=== PATIENT | female | born 1945 | race Caucasian/White ===

== ENCOUNTER 2017-06-09 13:00 | Outpatient (RCR) | payer MEDICARE, OTHER, SELFPAY ==
--- NOTE | 2017-03-31 09:55 | HP.PTEVAL_ITS ---
Patient's Visit Information MARITZA MCMILLAN is a 71 year old F referred to Physical Therapy by Khloe Pulido MD with a diagnosis of Bilateral Knee Pain. Date of Evaluation: 03/31/17 Physical Therapist: Eun Babcock - Visit Plan Frequency: 2x /Week Duration: 4 Weeks Plan: Focus on LE and core s/s and fuctional mobility - Subjective Subjective: Bilateral knee pain- increasing worse in the last year. Feels that they are both bad but they take turns being worse. Visited sister in [place] and she was pretty sore. 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 Has had injuries to both knees throughout years with wear and tear. Left knee repair 2000- torn meniscus and the repair would last 10 years. Hurt the right in 1959 rope tow blew the knee up- 2003 fell in a parking lot and ended up with knee pain. The right is normally worse than the left but not always. Pain comes and goes. Sleep: not disturbed. Worst: 3/10 Best: 0/10 Agg : sitting/standing for long periods of time (30 min to an hour), stairs (down is worse), getting in/out of the car, Eases:capsasin, asprin. Pain is located on the patellas and the posterior knee- possible radiating because she has sciatic pain on both sides. Sciatic pain both sides- came to see Shannon - has been having cortizone every 8 months in her back and muscle relaxers. Had been very active but her knees decrease her ability- last horse in July and does not plan to get another one. X-rays show no bone on bone. No MRI on the knees. Goals: reduce pain to be able to do more walking. PMHx: concussions (9), STM loss, repeated pneumonia, asthma, CPAP. Meds: promarin, proair, pantroprazole, provigil, niacin, folic acide - Objective Posture: FH, RS, Increased kyphosis. Gait: antalgic- decreased heel/toe strike. Stairs: asc/desc 8'' with 2 HR- slow with poor control. HR/TR: WNL. SLS: 15 sec without LOB then required UE A. Palpation: tender along medial and lateral joint line and posterior knee bilaterally. ROM: left: 5-100 degrees right: 20-100 degrees. Strength: ankle: 5/5, Knee: 4/5, Hip: 4-/5 throughout Core:fair minus. Flex: HS: severe, Gastroc: moderate - Goals Goal 1:: Patient will be I with HEP and progression Goal Time Frame: 4-6 Weeks Goal 2:: Patient will asc/desc 8 stairs recip with 1 HR and good control Goal Time Frame: 4-6 Weeks Goal 3:: Patient will ambulate>300 feet with a normalized gait pattern Goal Time Frame: 4-6 Weeks Goal 4:: Patient will report 0/10 pain for 1 week Goal Time Frame: 4-6 Weeks Goal 5:: Patient will demo 5/5 strength in LE where deficit to ease ADL's. Goal Time Frame: 4-6 Weeks - Rehabilitation Potential Physical Therapy Diagnosis: Patient presents with hypomobility- she has decreased ROM, strength, flex and muscular endurance leading to increased pain with ADL's. Rehabilitation Potential: Fair - Anticipated Interventions Patient/Client Instruction: Educate patient on: Benefits of Fitness Program For the Purpose of:: To increase tolerance to activity/condition/position Therapeutic Exercise to Include: Strength training, Balance training, Agility training, Body mechanics, Postural training, Flexibilty training, Gait and locomotor training, Passive ROM, Active ROM, Dynamic Lumbar Stabilization For the Purpose of:: To improve muscle performance and motor function TENS: Yes Cryotherapy (ice pack, ice massage): Yes Thermo therapy (hot pack): Yes Ultrasound (thermal/non thermal): Yes For the Purpose of:: To decrease pain Thank you for the opportunity to evaluate your patient. For Medicare and Medicare HMO plans, please review the plan of care and approve it. It will need to be FAXED BACK to us at [phone] for Medicare purposes. Please let me know if there are questions or concerns regarding this plan of care. Physician Signature: Date:
--- NOTE | 2017-04-28 13:50 | HP.PTREVAL_ITS ---
Khloe Pulido MD, It has been my pleasure to treat MARITZA MCMILLAN over the last 7 visits for Bilateral Knee Pain. Please see the progress note below for an update on the physical therapy plan of care! Subjective: Patient feels that she is better- can walk longer and is less painful. Still has problems getting up and down in a chair. Takes asprin 2x a day. Left vs Right depends on the day. Has not had injections in the knees. Has not seen an ortho yet. Feels that she is 40% better- wants to walk faster and longer distances. Objective/Function: Posture: good throughout. Gait: slightly antalgic- decreased stride length. HR/TR: WNL. Balance: SLS for 2 seconds each. ROM: WFL. Palpation: tender along medial and lateral joint line. Strength: Ankle: 5 /5, Knee: 4+/5, Hip: 4+/5 Plan Plan: Cont 2x a week for 4 weeks Goals Goal 1:: Patient will be I with HEP and progression Goal Time Frame: 4-6 Weeks Goal Progress: Progressing Goal 2:: Patient will asc/desc 8 stairs recip with 1 HR and good control Goal Time Frame: 4-6 Weeks Goal Progress: Progressing Goal 3:: Patient will ambulate>300 feet with a normalized gait pattern Goal Time Frame: 4-6 Weeks Goal Progress: Progressing Goal 4:: Patient will report 0/10 pain for 1 week Goal Time Frame: 4-6 Weeks Goal Progress: Progressing Goal 5:: Patient will demo 5/5 strength in LE where deficit to ease ADL's. Goal Time Frame: 4-6 Weeks Goal Progress: Progressing Anticipated Interventions Patient/Client Instruction: Educate patient on: Benefits of Fitness Program For the Purpose of:: To increase tolerance to activity/condition/position Therapeutic Exercise to Include: Strength training, Balance training, Agility training, Body mechanics, Postural training, Flexibilty training, Gait and locomotor training, Passive ROM, Active ROM, Dynamic Lumbar Stabilization For the Purpose of:: To improve muscle performance and motor function TENS: Yes Cryotherapy (ice pack, ice massage): Yes Thermo therapy (hot pack): Yes Ultrasound (thermal/non thermal): Yes For the Purpose of:: To decrease pain Please do not hesitate to contact me at [phone] by phone or Fax: if you have questions or concerns regarding this new plan of care! Sincerely, Eun Babcock
--- NOTE | 2017-06-09 13:53 | HP.PTDCSUM_ITS ---
[facility] - PT D/C Summary It has been my pleasure to treat MARITZA MCMILLAN under orders from Khloe Pulido MD, for the diagnosis of Bilateral Knee Pain for a total of 12 visit(s). Discharge Date: Please see the following information for a summary of their discharge status. - Subjective Subjective: Patient reports that moving is a lot better. After sitting for a long time she was sore after walking. Talked to Dr. Pulido who wants her to hold off on injections. - Pain Right Knee Pain Intensity (Out of 10): 2 Left Knee Pain Intensity (Out of 10): 2 - Objective Objective/Function: posture: good. Gait: no deviation noted. Stairs: asc/desc 8 recip with 1 HR- mildly poor control with descent. ROM: WFL. Strength: 5/ 5. HR/TR: WNL. Balance: 10 sec then UE A - Goals Goal 1:: Patient will be I with HEP and progression Goal Progress: Goal Met Goal 2:: Patient will asc/desc 8 stairs recip with 1 HR and good control Goal Progress: Progressing Goal 3:: Patient will ambulate>300 feet with a normalized gait pattern Goal Progress: Goal Met Goal 4:: Patient will report 0/10 pain for 1 week Goal Progress: Progressing Goal 5:: Patient will demo 5/5 strength in LE where deficit to ease ADL's. Goal Progress: Goal Met - Plan Plan: discharge - D/C Information If there are questions or concerns regarding this patient's physical therapy, please feel free to call me at [phone]. Thank you for the referral of this patient. Sincerely, Eun Babcock
== END 2017-06-09 19:00 | disposition home or self-care (01) ==
LOC: PT 13:00
PROVIDERS: Family Provider Family Medicine; PCP Family Medicine; Visit Provider Family Medicine
DX: M23.90 Unspecified internal derangement of unspecified knee (principal)
CPT/HCPCS: 97110; 97162; 97530; G8978; G8979

== ENCOUNTER 2018-05-24 14:30 | Outpatient (RCR) | payer MEDICARE, OTHER, SELFPAY ==
--- NOTE | 2018-03-08 10:57 | HP.PTEVAL_ITS ---
Patient's Visit Information MARITZA MCMILLAN is a 72 year old F referred to Physical Therapy by Khloe Pulido MD with a diagnosis of LEFT GLUTEUS STRAIN. Date of Evaluation: 03/08/18 Physical Therapist: Shannon Coffman - Visit Plan Frequency: 2x /Week Duration: 4-6 Weeks Plan: US TO LUMBOSACRAL REGION. POSTURE CORRECTION/STRENGTHENING, INSTRUCTION IN APPROPRIATE BODY MECHANICS AND ACTIVITY MODIFICATIONS. DLS WITH A NEUTRAL SPINE. SLY LE ROM, STRETCHING AND STRENGTHENING. HEP INSTRUCTION. CONSIDER AQUATIC THERAPY. 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 Disability: NO. Present symptoms: SLY LOW BACK PAIN AND TIGHTNESS THAT RADIATES DOWN BOTH BOTH LEGS TO FEET. LEFT > RIGHT. PATIENT DOES NOT REALLY THINK SHE IS HAVING NUMBNESS OR TINGLING BUT DISCRIBES AN ELECTRIC PAIN. Present since: CHRONIC LOW BACK CONDITION WITH FLARE UP IN APPROX NOVEMBER OF THIS YEAR WITH SITTING JOB. HAS ALSO HAD A HOUSE GUEST RECOVERING FROM SURGERY FOR A FEW MONTHS. Pain Scale: WORST 4/10, LEAST 0/10. Currently: 2/10. Commenced as a result of: NO APPARENT REASON OTHER THAN NEW JOB AND CHANGES RELATED TO HAVING HOUSE GUEST. Symptoms at onset: SLY LE'S. Worse: SITTING AT WORK, STANDING, DRIVING, CLIMBING STAIRS. Better: LYING DOWN ON BACK OR LEFT SDLY, TENS, SELF MASSAGE, PPT, FLEXERIL, IBUPROFEN. Disturbed sleep: NO. Previous history/Previous treatment: PT HERE AT [facility] 3[facility]/2015. STEROID INJECTIONS AT DR. PULIDO'S OFFICE (NOT DEBBI'S) WITH LAST INJECTION BEING JAN 2018. PATIENT REPORTS THE SHOTS USUALLY LAST ABOUT 6 MONTHS BUT THE LAST SHOT DIDN'T HELP MUCH AT ALL. NO DEBBI'S. NO BACK SURGERY. Coughing/sneezing/straining: NEGATIVE. Gait: PATIENT REPORTS HER RIGHT HEEL IS SCUFFING WHEN SHE WALKS NOW. SHE ALSO REPORTS SHE IS GUARDING HER BACK WITH WALKING. Difficulty initiating urinatin: NO. Accidents: NO. Unexplained weight loss: NO. Imaging: SEE MRI 2014. PMH: SLY KNEE OA, DEPRESSION. OTHER: PRIOR LEVEL OF FUNCTION: HAS GONE HORSE RIDING FOR ABOUT 6 YEARS. PRIOR TO THIS FLARE-UP PATIENT WAS ABLE TO WALK NORMAL AND WALK FURTHER. SHE WAS ALSO ABLE TO TOLERATE RIDING IN A CAR AND SITTING UNLIMITED PRIOR. SHE EVEN WAS ABLE TO TRAVEL BY PLANE. TOLERATING ALL OF THESE ACTIVITIES WELL WITH THE USE OF TENS, REST AND MEDICATION NEEDED. - Objective Sitting/Standing Posture: POOR. DECREASED LORDOSIS, FORWARD HEAD AND ROUNDED SHOULDERS. SCOLIOSIS. NO RELEVENT LATERAL SHIFT. Other Observations: THIS PATIENT AMBULATES INDEP'LY INTO PT WITHOUT ANY ASSISTIVE DEVICES OR LOB. SHE WALKS WITH INCREASED TRUNK FLEXION, DECREASED TRUNK ROTATION, DECREASED CADANCE AND DECREASED SLY STRIDE LENGTH. PATIENT IS ABLE TO TRANSFER INDEP'LY FROM SIT TO STAND AND REVERSE BUT TRANSFERS ARE SLOW AND GUARDED. Motor deficit: SLY LE HIP AND KNEE STRENGTH GROSSLY 4/5 WITH MMT'ING WITHIN AVAILABLE ROM. SLY ANKLE AND EHL 5/5. Sensory deficit: SLY LE LIGHT TOUCH SENSATION INTACT AND SYMMETR ICAL. ROM deficit: TIGHT SLY HIP FLEXORS AND HS'S. DECREASED SLY KNEE ROM: RIGHT KNEE - 10 DEG EXT TO 102 DEG FLEX. LEFT KNEE -12 DEG EXT TO 105 DEG FLEX. Reflexes: UNABLE TO ELICIT SLY LE DTR'S. Dural Signs: POSITIVE SLY LE'S. Lumbar mvmt loss: flex - MIN TO MOD. ext - BELLE. R SG - BELLE. L SG - BELLE. Core strength: POOR. Palpation: PATIENT IS TENDER WITH LIGHT PALPATION OF THE L3,4,5 AND SACRAL REGIONS. - Goals Goal 1:: DECREASE C/O LOW BACK AND SLY LE SX'S. Goal Time Frame: 4-6 Weeks Goal 2:: IMPROVE SITTING, STANDING, WALKING, DRIVING AND STAIR CLIMBING FUNCTION. Goal Time Frame: 4-6 Weeks Goal 3:: INSTRUCT IN PROPHYLAXIS Goal Time Frame: 4-6 Weeks - Rehabilitation Potential Rehabilitation Potential: Fair - Anticipated Interventions Patient/Client Instruction: Educate patient on: Condition, Plan of Care, Risk Factors, Benefits of Fitness Program For the Purpose of:: To improve self management Therapeutic Exercise to Include: Strength training, Body mechanics, Postural training, Flexibilty training, In an aquatic setting, Dynamic Lumbar Stabilization For the Purpose of:: To decrease pain, To increase ROM, To improve muscle performance and motor function, To increase tolerance to activity/condition/position, To improve ability of physical actions for home/community/work/leisure Ultrasound (thermal/non thermal): Yes For the Purpose of:: To decrease pain, To decrease swelling/inflammation, To inc rease ROM, To improve nutrient delivery to tissue Thank you for the opportunity to evaluate your patient. For Medicare and Medicare HMO plans, please review the plan of care and approve it. It will need to be FAXED BACK to us at [phone] for Medicare purposes. Please let me know if there are questions or concerns regarding this plan of care. Physician Signature: Date:
--- NOTE | 2018-04-19 17:02 | HP.PTREVAL ---
Khloe Pulido MD, It has been my pleasure to treat MARITZA MCMILLAN over the last 9 visits for LEFT GLUTEUS STRAIN. Please see the progress note below for an update on the physical therapy plan of care! Subjective: PATIENT REPORTS SHE IS WORKING ON GETTING AN APPOINTMENT FOR A CONSULT FOR DEBBI BUT IN THE MEAN TIME SHE IS GOING TO GET ANOTHER STEROID INJECTION FROM DR. PULIDO TOMORROW. PATIENT REPORTS SHE HAS TRIED TO COMPLY WITH PRIOR INSTRUCTIONS AND HAS HAD SOME GOOD DAYS SHOWING IMPROVEMENT BUT WOKE UP WITH PAIN DOWN RIGHT LEG TODAY AND KNEES HAVE NOT BEEN HELPFUL. PATIENT REPORTS SHE IS NO LONGER HAVING SPASMS IN HER LEGS AND THAT IS WHAT SCARED HER INITIALLY. SHE REPORTS SHE IS ALSO ABLE TO DRIVE WITH LESS SX'S. STEPS ARE SIGNIFICANTLY BETTER NOW TOO. Objective/Function: THIS PATIENT AMBULATES INDEP'LY INTO PT WITHOUT ANY ASSISTIVE DEVICES OR LOB. SHE STILL WALKS WITH INCREASED TRUNK FLEXION, DECREASED TRUNK ROTATION, DECREASED CADANCE AND DECREASED SLY STRIDE LENGTH WELL SLY KNEE FLEX. PATIENT IS ABLE TO TRANSFER INDEP'LY FROM SIT TO STAND AND REVERSE WITHOUT UE ASSIST BUT TRANSFERS ARE SLOW AND GUARDED. ROM deficit: TIGHT SLY HIP FLEXORS AND HS'S. DECREASED SLY KNEE ROM. Dural Signs: NEGATIVE SLY LE'S NOW. Lumbar mvmt loss: flex - MIN TO MOD. ext - MOD TO BELLE. R SG - MOD. L SG - BELLE. PATIENT DENIES INCREASED PAIN WITH LUMBAR ROM TESTING ALL PLANES IN BACK. Core strength: POOR. Palpation: PATIENT IS TENDER WITH LIGHT PALPATION OF THE SLY PARASPINAL, SACRAL AND BUTTOCK REGIONS. Plan Plan: DISCUSS TENS. CONT PER ORIG POC WORKING TOWARD SAME GOALS WITH THE HOPE THAT INJECTIONS ALONG WITH STANDING DESK AT WORK WILL HELP PATIENT TOLERATED PROGRESSION OF CORE STRENGTHENING. PATIENT IS AGREEABLE. Goals Goal 1:: DECREASE C/O LOW BACK AND SLY LE SX'S. Goal Time Frame: 4-6 Weeks Goal Progress: Progressing Goal 2:: IMPROVE SITTING, STANDING, WALKING, DRIVING AND STAIR CLIMBING FUNCTION. Goal Time Frame: 4-6 Weeks Goal Progress: Progressing Goal 3:: INSTRUCT IN PROPHYLAXIS Goal Time Frame: 4-6 Weeks Goal Progress: Progressing Anticipated Interventions Patient/Client Instruction: Educate patient on: Condition, Plan of Care, Risk Factors, Benefits of Fitness Program For the Purpose of:: To improve self management Therapeutic Exercise to Include: Strength training, Body mechanics, Postural training, Flexibilty training, In an aquatic setting, Dynamic Lumbar Stabilization For the Purpose of:: To decrease pain, To increase ROM, To improve muscle performance and motor function, To increase tolerance to activity/condition/position, To improve ability of physical actions for home/community/work/leisure Ultrasound (thermal/non thermal): Yes For the Purpose of:: To decrease pain, To decrease swelling/inflammation, To increase ROM, To improve nutrient delivery to tissue Please do not hesitate to contact me at [phone] by phone or if you have questions or concerns regarding this new plan of care! Sincerely, Shannon Coffman
--- NOTE | 2018-07-07 16:08 | HP.PT.NRP ---
[facility] - Discharge Summary (1) - Patient Information MARITZA MCMILLAN was seen in my office for initial evaluation on 03/08/18. The following Plan of Care was established for this patient: Initial Frequency: 2x /Week Initial Duration: 4-6 Weeks - Anticipated Interventions Patient/Client Instruction: Educate patient on: Condition, Plan of Care, Risk Factors, Benefits of Fitness Program For the Purpose of:: To improve self management Therapeutic Exercise to Include: Strength training, Body mechanics, Postural training, Flexibilty training, In an aquatic setting, Dynamic Lumbar Stabilization For the Purpose of:: To decrease pain, To increase ROM, To improve muscle performance and motor function, To increase tolerance to activity/condition/position, To improve ability of physical actions for home/community/work/leisure Ultrasound (thermal/non thermal): Yes For the Purpose of:: To decrease pain, To decrease swelling/inflammation, To increase ROM, To improve nutrient delivery to tissue This patient was last seen in our office 05/24/18. Pertinent comments regarding their Physical therapy will appear below: This patient has not returned to Physical Therapy and is appropriate to return to MD for further follow-up as needed. At this point I will be discontinuing this patient from physical therapy. I would be happy to see this patient again in the future if found appropriate by the physician. Thank you! Shannon Coffman, PT, Cert MDT
== END 2018-05-24 19:00 | disposition home or self-care (01) ==
LOC: PT 14:30
PROVIDERS: Family Provider Family Medicine; PCP Family Medicine; Referring Provider Family Medicine; Visit Provider Family Medicine
DX: S76.312D Strain of muscle, fascia and tendon of the posterior muscle group at thigh level, left thigh, subsequent encounter (principal)
CPT/HCPCS: 97035; 97110; 97113; 97162; 97530

== ENCOUNTER → 2020-07-22 13:30 | Outpatient (CLI) | payer MEDICARE, OTHER, SELFPAY ==
[2016-07-09 12:53] VITALS: BMI 33.1
--- NOTE | 2020-07-22 13:41 | RAD_ITS ---
STUDY: X-RAY - RIGHT KNEE REASON FOR EXAM: Female, 74 years old. PAIN TECHNIQUE: 4 view(s) of the knee. COMPARISON: None. FINDINGS: Normal visualized distal femur. Normal visualized proximal tibia and fibula. Normal proximal tibiofibular articulation. Normal medial femorotibial compartment. There is severe degenerative arthrosis of the lateral femorotibial compartment with severe joint space narrowing. There is moderate degenerative arthrosis of the patellofemoral articulation. The soft tissue structures are unremarkable. RAD/Knee 4 or More Views IMPRESSION: Degenerative arthrosis. Electronically Signed: Rajinder Simmons MD at 12:03 EST , Service support ,
== END ==
PROVIDERS: PCP Family Medicine; Referring Provider Nurse Practitioner Family; Visit Provider Nurse Practitioner Family
DX: M25.561 Pain in right knee (principal)
CPT/HCPCS: 73564

== ENCOUNTER → 2020-10-14 12:43 | Outpatient (CLI) | payer MEDICARE, OTHER, SELFPAY ==
--- NOTE | 2020-10-14 12:57 | RAD_ITS ---
STUDY: BARIUM ENEMA. REASON FOR EXAM: Female, 75 years old. REDUNDANT COLON/INCOMPLETE COLON FLUOROSCOPY TIME (if supplied): ( 78 seconds ) minutes/seconds. 13 images were obtained. TECHNIQUE: A ophthalmic pathologist film was obtained. Following this, contrast was introduced retrograde through the rectum. The entire colon was opacified. COMPARISON: None. FINDINGS: On the ophthalmic pathologist film, the gas pattern is unremarkable. Calcified gallstones. There is evidence of a dextroconvex scoliosis with multilevel disc space narrowing and spondylosis. There is redundancy of the sigmoid colon. Scattered sigmoid diverticula are seen with no radiographic evidence of diverticulitis. Diverticula are also seen in the left hemicolon. No evidence of antegrade or retrograde obstruction to the flow of contrast. RAD/Barium Enema No Air Cont IMPRESSION: Sigmoid diverticula with no radiographic evidence of diverticulitis. Gallstones. Electronically Signed: Simone Chavarria MD at 14:47 EDT , Service support ,
== END ==
PROVIDERS: PCP Family Medicine; Referring Provider Internal Medicine Gastroenterology; Visit Provider Internal Medicine Gastroenterology
DX: Q43.8 Other specified congenital malformations of intestine (principal); R15.0 Incomplete defecation
CPT/HCPCS: 74270

== ENCOUNTER → 2021-02-03 14:21 | Outpatient (CLI) | payer MEDICARE, OTHER, SELFPAY ==
[2021-02-03 18:32] LABS: AST(SGOT) 55 U/L (15-37); Alanine Aminotransfer ALT/SGPT 49 U/L (13-56); Albumin, Serum 3.6 g/dL (3.2-5.0); Alkaline Phosphatase 100 U/L (45-117); Anion Gap 7 (5-15); BUN 15 mg/dL (7-18); BUN/Creat Ratio 21.2 RATIO (10-20); Bilirubin, Direct 0.08 mg/dL (0.00-0.30); Calcium,Total 9.4 mg/dL (8.5-10.1); Chloride 103 mmol/L (98-107); Cholesterol 198 mg/dL (200); Creatinine, Serum 0.71 mg/dL (0.55-1.02); EST Glomerular Filtration Rate 86 mL/min (>60); Est Glom Filt Rate - Afr Amer 104 mL/min (>60); Globulin 4.4 g/dL (2.2-4.2); Glucose 160 mg/dL (74-106); High Density Lipoprotein 47 mg/dL; Potassium 4.3 mmol/L (3.5-5.1); Sodium Level 135 mmol/L (136-145); Thyroid Stim Hormone (TSH) 2.39 uIU/mL (0.358-3.74); Triglycerides 225 mg/dL; Very Low Density Lipoprotein 45 mg/dL (5-40)
== END ==
PROVIDERS: PCP Family Medicine; Referring Provider Family Medicine; Visit Provider Family Medicine
DX: E11.9 Type 2 diabetes mellitus without complications (principal)
CPT/HCPCS: 36415; 80048; 80061; 80076; 84443

== ENCOUNTER 2021-08-11 15:23 | Outpatient (CLI) | payer MEDICARE, OTHER, SELFPAY ==
--- NOTE | 2021-08-11 15:27 | RAD_ITS ---
STUDY: X-RAY - RIGHT ELBOW REASON FOR EXAM: Female, 75 years old. ELBOW PAIN TECHNIQUE: 3 view(s) of the elbow. COMPARISON: None. FINDINGS: Normal visualized humerus, radius and ulna. Normal radiocapitellar and ulnotrochlear articulations. Minimal enthesis, or presumed tendon insertion ossification, along medial humeral condyle. The soft tissue structures are unremarkable. RAD/Elbow min 3 Views IMPRESSION: Minimal chronic changes. No evidence of joint effusion or other acute findings. Electronically Signed: Beatrice Valenzuela MD at 1:00 EDT ,
== END 2021-08-11 23:59 | disposition home or self-care (01) ==
LOC: MTRAD 15:25
PROVIDERS: PCP Family Medicine; Referring Provider Family Medicine; Visit Provider Family Medicine
DX: M25.521 Pain in right elbow (principal)
CPT/HCPCS: 73080

== ENCOUNTER → 2021-10-05 | Outpatient (CLI) | payer MEDICARE, OTHER, SELFPAY ==
[2021-10-05 17:47] LABS: Absolute Lymphocyte Count 2.33 X10^3/uL (0.83-4.51); Absolute Neutrophil Count 2.9 X10^3/uL (2.0-7.7); Basophil# 0.02 X10^3/uL; Basophil% 0.3 % (0-1); Eosinophil# 0.23 X10^3/uL; Eosinophils% 3.8 % (0-5); Hematocrit 36.9 % (37-47); Hemoglobin 11.7 g/dL (12.0-15.0); Lymphocyte # 2.33 X10^3/ul (0.83-4.51); Lymphocyte % 38.1 % (19-41); Mean Corp Hgb Conc 31.7 g/dL (32-36); Mean Corpuscular Hgb 30.6 pg (27.0-32.0); Mean Corpuscular Volume 96.6 fL (81-99); Mean Platelet Vol. 10.5 fl (6.2-12.0); Monocyte# 0.66 X10^3/uL; Monocyte% 10.8 % (0-10); NRBC Flagged by Analyzer 0 % (0-5); Neutrophil # 2.85 X10^3/uL (2.7-7.7); Neutrophil % 46.5 % (47-70); Platelet Count 241 K/mm3 (150-450); RBC Distribution Width CV 14.1 % (11.6-14.6); RBC Distribution Width SD 49.3 fl (35.1-43.9); Red Blood Count 3.82 M/mm3 (4.2-5.4); White Blood Count 6.1 K/mm3 (4.4-11.0)
== END | disposition home or self-care (01) ==
LOC: MFPLAB 15:35
PROVIDERS: PCP Family Medicine; Visit Provider Family Medicine
DX: R04.0 Epistaxis (principal)
CPT/HCPCS: 36415; 85025

== ENCOUNTER → 2021-11-06 | Outpatient (CLI) | payer MEDICARE, OTHER, SELFPAY ==
[2021-11-06 15:43] LABS: AST(SGOT) 45 U/L (15-37); Alanine Aminotransfer ALT/SGPT 46 U/L (13-56); Albumin, Serum 3.7 g/dL (3.2-5.0); Alkaline Phosphatase 94 U/L (45-117); Anion Gap 8 (5-15); BUN 20 mg/dL (7-18); BUN/Creat Ratio 23.1 RATIO (10-20); Bilirubin, Direct 0.09 mg/dL (0.00-0.30); Calcium,Total 9.6 mg/dL (8.5-10.1); Chloride 106 mmol/L (98-107); Cholesterol 232 mg/dL (200); Creatinine, Serum 0.87 mg/dL (0.55-1.02); EST Glomerular Filtration Rate 68 mL/min (>60); Est Glom Filt Rate - Afr Amer 82 mL/min (>60); Globulin 4.1 g/dL (2.2-4.2); Glucose 153 mg/dL (74-106); High Density Lipoprotein 49 mg/dL; Potassium 4.3 mmol/L (3.5-5.1); Protein, Total 7.8 g/dL (6.4-8.2); Sodium Level 138 mmol/L (136-145); Triglycerides 254 mg/dL; Very Low Density Lipoprotein 51 mg/dL (5-40)
== END | disposition home or self-care (01) ==
LOC: MFPLAB 14:03
PROVIDERS: PCP Family Medicine; Referring Provider Family Medicine; Visit Provider Family Medicine
DX: E11.9 Type 2 diabetes mellitus without complications (principal)
CPT/HCPCS: 36415; 80048; 80061; 80076

== ENCOUNTER → 2022-01-12 | Outpatient (CLI) | payer MEDICARE, OTHER, SELFPAY ==
[2022-01-12 15:32] LABS: Absolute Lymphocyte Count 3.18 X10^3/uL (0.83-4.51); Absolute Neutrophil Count 4.1 X10^3/uL (2.0-7.7); Basophil# 0.06 X10^3/uL; Basophil% 0.7 % (0-1); Eosinophils% 3.5 % (0-5); Hematocrit 38.5 % (37-47); Hemoglobin 12.6 g/dL (12.0-15.0); Lymphocyte # 3.18 X10^3/ul (0.83-4.51); Mean Corp Hgb Conc 32.7 g/dL (32-36); Mean Corpuscular Hgb 28.8 pg (27.0-32.0); Mean Corpuscular Volume 88.1 fL (81-99); Monocyte# 0.94 X10^3/uL; Monocyte% 10.9 % (0-10); NRBC Flagged by Analyzer 0 % (0-5); Neutrophil # 4.08 X10^3/uL (2.7-7.7); Neutrophil % 47.6 % (47-70); Platelet Count 208 K/mm3 (150-450); RBC Distribution Width CV 13.5 % (11.6-14.6); RBC Distribution Width SD 44.2 fl (35.1-43.9); Red Blood Count 4.37 M/mm3 (4.2-5.4); White Blood Count 8.6 K/mm3 (4.4-11.0)
[2022-01-12 15:51] LABS: AST(SGOT) 49 U/L (15-37); Alanine Aminotransfer ALT/SGPT 41 U/L (13-56); Cholesterol 143 mg/dL (200); High Density Lipoprotein 47 mg/dL; Iron 72 ug/dL (50-170); Triglycerides 163 mg/dL; Very Low Density Lipoprotein 33 mg/dL (5-40)
== END | disposition home or self-care (01) ==
LOC: MTLAB 13:07
PROVIDERS: PCP Family Medicine; Referring Provider Family Medicine; Visit Provider Family Medicine
DX: E78.5 Hyperlipidemia, unspecified (principal); D64.9 Anemia, unspecified
CPT/HCPCS: 36415; 80061; 83540; 84450; 84460; 85025

== ENCOUNTER 2022-02-24 11:30 | Outpatient (RCR) | payer MEDICARE, OTHER, SELFPAY ==
--- NOTE | 2021-08-31 14:16 | [facility].PTEVAL_ITS ---
Patient's Visit Information MARITZA MCMILLAN is a 75 year old F referred to Physical Therapy by DIANE Todd with a diagnosis of DEGENERATION OF LUMBOSACRAL DISC. Date of Evaluation: 08/31/21 Physical Therapist: Shannon Coffman PT, Cert MDT - Visit Plan Frequency: 2-3x /Week Duration: 4-6 Weeks Plan: AQUATIC THERAPY FOR PAIN RELIEF, POSTURE CORRECTION/STRENGTHENING, INSTRUCTION IN APPROPRIATE BODY MECHANICS AND ACTIVITY MODIFICATIONS. DLS STARTING WITH A NEUTRAL SPINE PROGRESSING ROM TOLERATED. SLY LE ROM, STRETCHING AND STRENGTHENING. HEP INSTRUCTION. 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 Work/Leisure: [employer]. Present symptoms: LOW BACK PAIN - TOP OF HIPS. Present since: CHRONIC. Pain Scale: WORST 4/10, LEAST 0/10. Currently: 1-2/10. Commenced as a result of: NO APPARENT REASON OTHER THAN ARTHRITIS. Worse: STANDING AND WALKING, LIFTING GROCERIES, LIFTING GALLON OF MILK. Better: LYING DOWN FLAT, MUSCLE RELAXERS, TYLONOL. Disturbed sleep: NO. Previous history/Previous treatment: NO BACK SURGERY. 3 SETS OF INJECTIONS WITH LAST BEING 07/10/21 - HELPFUL. 08/19/21 N. BLOCK - HELPFUL - REDUCED PAIN BY ABOUT 75%. Coughing/sneezing/straining: NEGATIVE. Gait: LIMITED BY BACK PAIN. BEFORE N. BLOCK COULD NOT WALK MORE THAN ABOUT 250 TO 300 FEET. Difficulty initiating urination: NO. DENIES URINARY AND BOWEL INCONTINENCE. Unexplained weight loss: NO. Imaging: NONE RECENT. PMH/Recent major surgery: NOVEMBER 2020 RTK FOLLOWED BY 2 BLOOD CLOTS. NIDDM. ASTHMA. - Objective Sitting/Standing Posture: POOR. FH. RS'S. INCREASED KYPHOSIS. RIGHT ILIAC CREST HIGHER THAN RIGHT. WEARS L SHOE LIFT SOMETIMES. Lordosis: REDUCED. Other Observations: THIS PATIENT AMBULATES INDEP'LY INTO PT WITHOUT ANY ASSISTIVE DEVICES, DECREASED CADANCE, SLY KNEE FLEXION AND INCREASED TRUNK FLEXION. NO LOB. DECREASED SLY STRIDE LENGTH. MILD LIMP ON RIGHT LE. Sensory d eficit: SLY LE LIGHT TOUCH SENSATION IS GROSSLY INTACT AND SYMMETRICAL EXCEPT SOME RIGHT KNEE NUMBNESS THAT APPEARS TO BE RELATED TO TKR. ROM deficit: TIGHT SLY HIP FLEXORS, HS'S AND GASTROC SOLEUX COMPLEX'S. Motor deficit: RIGHT LE: HIP 4-/5, KNEE 4/5, ANKLE 5/5. RIGHT HIP 4/5, KNEE 4/5, ANKLE 5/5. Dural Signs: NEG SLY LE'S. Lumbar mvmt loss: flex - MOD. ext - BELLE. R SG - BELLE. L SG - BELLE. Core strength: POOR. Palpation: NO ACUTE L/S TENDERNESS. - Balance/Special Test Scores Oswestry Low Back Score: 19 - Goals Goal 1:: DECREASE C/O LOW BACK PAIN Goal Time Frame: 4-6 Weeks Goal 2:: IMPROVE LIFTING, WALKING, SITTING, STANDING, SOCIAL LIFE, TRAVEL AND HOMEMAKING FUNCTION Goal Time Frame: 4-6 Weeks Goal 3:: INSTRUCT IN PROPHYLAXIS Goal Time Frame: 4-6 Weeks - Anticipated Interventions Patient/Client Instruction: Educate patient on: Condition, Plan of Care, Risk Factors For the Purpose of:: To improve self management Therapeutic Exercise to Include: Strength training, Body mechanics, Postural training, Flexibilty training, Gait and locomotor training, Neuromotor development, In an aquatic setting, Dynamic Lumbar Stabilization For the Purpose of:: To decrease pain, To increase ROM, To improve muscle performance and motor function, To increase tolerance to activity/condition/position, To improve ability of physical actions for home/community/work/leisure, To improve gait and locomotor functions Thank you for the opportunity to evaluate your patient. For Medicare and Medicare HMO plans, please review the plan of care and approve it. It will need to be FAXED BACK to us at [phone] for Medicare purposes. For Medicare only, by signing this I certify the plan of care. Please let me know if there are questions or concerns regarding this plan of care. Physician Signature: Date:
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
--- NOTE | 2021-12-18 12:18 | HP.PTREVAL ---
Eleni Srivastava, MONY-C, It has been my pleasure to treat MARITZA MCMILLAN over the last 17 visits for DEGENERATION OF LUMBOSACRAL DISC. Please see the progress note below for an update on the physical therapy plan of care! Subjective: PATIENT REPORTS HER WALKING PACE IS IMPROVING BUT STILL HAS POOR ENDURANCE - NEEDING TO REST AFTER ABOUT 20 MIN OF ACTIVITIES. STATES SHE CAN DO THE POOL EX'S BETTER SINCE RE-STARTING AND FEELS SHE CAN ACTIVATE MUSCLES INDIVIDUALLY NOW THAT SHE COULDN'T BEFORE. ABLE TO TRANSFER OFF THE COUCH INDEP'LY CONSISTANTLY NOW. I THINK YOUR POOL THERAPISTS DO A GREAT JOB. REPORTS HER DIABETES IS UNDER CONTROL NOW. Objective/Function: PATIENT WAS SEEN TODAY FOR RE-ASSESSMENT OF PROGRESS TOWARD THE SET PT GOALS AND THE NEED FOR FURTHER PHYSICAL THERAPY VS READINESS FOR DISCHARGE. PATIENT IS TOLERATING AQUATIC THERAPY WELL AND A GOOD CANDIDATE TO CONTINUE. PATIENT IS AGREEABLE. UPON EXAM TODAY: THIS PATIENT AMBULATES INDEP'LY INTO PT WITHOUT ANY ASSISTIVE DEVICES, DECREASED CADANCE, SLY KNEE FLEXION AND INCREASED TRUNK FLEXION. NO LOB. DECREASED SLY STRIDE LENGTH. MILD LIMP ON RIGHT LE. ROM deficit: TIGHT SLY HIP FLEXORS, HS'S AND GASTROC SOLEUS COMPLEX'S. Motor deficit: RIGHT LE: HIP 4/5, KNEE 4/5, ANKLE 5/5. LEFT HIP 4/5, KNEE 4/5, ANKLE 5/5. Dural Signs: NEG SLY LE'S. Lumbar mvmt loss: flex - MIN TO MOD. ext - BELLE. R SG - MOD. L SG - MOD. PATIENT DENIES INCREASED PAIN WITH LUMBAR ROM TESTING TODAY INTO FLEXION BUT LSG PROVOKES PAIN. Core strength: POOR TO FAIR. Palpation: NO ACUTE L/S TENDERNESS. OTHER: PATIENT REPORTS INTERMITTENT LEFT ABDOMINAL AREA CRAMPING WITH TASKS LIKE PUTTING SHOES ON - INSTRUCTED IN DIAPHRAGMATIC BREATHING WITH GOOD RESPONSE. Plan Plan: CONTINUE AQUATIC THERAPY FOR PAIN RELIEF, POSTURE CORRECTION/STRENGTHENING, INSTRUCTION IN APPROPRIATE BODY MECHANICS AND ACTIVITY MODIFICATIONS. DLS STARTING WITH A NEUTRAL SPINE PROGRESSING ROM TOLERATED. SLY LE ROM, STRETCHING AND STRENGTHENING. HEP INSTRUCTION. Balance/Gait/Functional tests - Balance/Special Test Scores Oswestry Low Back Score: 21 TUG Test Time Seconds: 9.54 Tug Test: <20 sec.=mostly independent 30 Second Chair Rise Test Seconds: 10 Goals Goal 1:: DECREASE C/O LOW BACK PAIN Goal Time Frame: 4-6 Weeks Goal Progress: Progressing Goal 2:: IMPROVE LIFTING, WALKING, SITTING, STANDING, SOCIAL LIFE, TRAVEL AND HOMEMAKING FUNCTION Goal Time Frame: 4-6 Weeks Goal Progress: Progressing Goal 3:: INSTRUCT IN PROPHYLAXIS Goal Time Frame: 4-6 Weeks Goal Progress: Progressing Anticipated Interventions Patient/Client Instruction: Educate patient on: Condition, Plan of Care, Risk Factors For the Purpose of:: To improve self management Therapeutic Exercise to Include: Strength training, Body mechanics, Postural training, Flexibilty training, Gait and locomotor training, Neuromotor development, In an aquatic setting, Dynamic Lumbar Stabilization For the Purpose of:: To decrease pain, To increase ROM, To improve muscle performance and motor function, To increase tolerance to activity/condition/position, To improve ability of physical actions for home/community/work/leisure, To improve gait and locomotor functions Please do not hesitate to contact me at [phone] by phone or if you have questions or concerns regarding this new plan of care! Sincerely, Shannon Coffman, PT, Cert MDT
--- NOTE | 2022-01-22 13:08 | HP.PTREVAL ---
Eleni Srivastava, MONY-C, It has been my pleasure to treat MARITZA MCMILLAN over the last 27 visits for DEGENERATION OF LUMBOSACRAL DISC. Please see the progress note below for an update on the physical therapy plan of care! Subjective: I'M STRONGER AND MY ENDURANCE IS BETTER. ABLE TO DO EXTRA 20 MINUTES OF POOL EX AFTER LAST SESSION AND STILL ABLE TO WALK TO THE CAR AND RUN ERRANDS AFTER WITHOUT FEELING BEAT UP CAN LIFT A JUG OF WATER WITHOUT BEING IN PAIN. CAN MAKE SOME MEALS AND DO THE DISHES. EVEN DOING SOME FREEZING. PATIENT REPORTS HER LEFT SIDE CRAMPING IS INTERMITTENT NOW AND IT GOES AWAY WITH DIAPHRAGMATIC BREATHING. Objective/Function: PATIENT WAS SEEN TODAY FOR RE-ASSESSMENT OF PROGRESS TOWARD THE SET PT GOALS AND THE NEED FOR FURTHER PHYSICAL THERAPY VS READINESS FOR DISCHARGE. PATIENT IS TOLERATING AQUATIC THERAPY WELL AND A GOOD CANDIDATE TO CONTINUE DECREASING TO 1X/WK WHILE SHE ATTEMPS TO TRANSITION TO INDEP PROGRAM. PATIENT IS AGREEABLE. UPON EXAM TODAY: THIS PATIENT AMBULATES INDEP'LY INTO PT WITHOUT ANY ASSISTIVE DEVICES, GOOD CADANCE, MILD SLY KNEE FLEXION AND INCREASED TRUNK FLEXION. NO LOB. ROM deficit: TIGHT SLY HIP FLEXORS, HS'S AND GASTROC SOLEUS COMPLEX'S. TIGHT HIP ROTATORS. Motor deficit: RIGHT LE: HIP 4/5, KNEE 4/5, ANKLE 5/5. LEFT HIP 4/5, KNEE 4/5, ANKLE 5/5. Dural Signs: NEG SLY LE'S. Lumbar mvmt loss: flex - MIN - MOD. ext - BELLE. R SG - MOD. L SG - MOD. PATIENT REPORTS MILD INCREASED LBP TODAY WITH LUMBAR ROM TESTING ALL PLANES. Core strength: POOR TO FAIR. _ INSTRUCTED IN AND ADDED SUPINE HIP ADDUCTOR STRETCHING TO HEP X 20 SEC X 3, 2 TIMES A DAY. Plan Plan: CONTINUE AQUATIC THERAPY 1X/WK X 4-5 WKS FOR PAIN RELIEF, POSTURE CORRECTION/STRENGTHENING, INSTRUCTION IN APPROPRIATE BODY MECHANICS AND ACTIVITY MODIFICATIONS. DLS STARTING WITH A NEUTRAL SPINE PROGRESSING ROM TOLERATED. SLY LE ROM, STRETCHING AND STRENGTHENING. HEP INSTRUCTION. Balance/Gait/Functional tests - Balance/Special Test Scores Oswestry Low Back Score: 21 TUG Test Time Seconds: 9.22 Tug Test: <10 sec.=free mobile 30 Second Chair Rise Test Seconds: 11 Goals Goal 1:: DECREASE C/O LOW BACK PAIN Goal Time Frame: 4-6 Weeks Goal Progress: Progressing Goal 2:: IMPROVE LIFTING, WALKING, SITTING, STANDING, SOCIAL LIFE, TRAVEL AND HOMEMAKING FUNCTION Goal Time Frame: 4-6 Weeks Goal Progress: Progressing Goal 3:: INSTRUCT IN PROPHYLAXIS Goal Time Frame: 4-6 Weeks Goal Progress: Progressing Anticipated Interventions Patient/Client Instruction: Educate patient on: Condition, Plan of Care, Risk Factors For the Purpose of:: To improve self management Therapeutic Exercise to Include: Strength training, Body mechanics, Postural training, Flexibilty training, Gait and locomotor training, Neuromotor development, In an aquatic setting, Dynamic Lumbar Stabilization For the Purpose of:: To decrease pain, To increase ROM, To improve muscle performance and motor function, To increase tolerance to activity/condition/position, To improve ability of physical actions for home/community/work/leisure, To improve gait and locomotor functions Please do not hesitate to contact me at [phone] by phone or if you have questions or concerns regarding this new plan of care! Sincerely, Shannon Coffman, PT, Cert MDT
--- NOTE | 2022-02-24 13:11 | HP.PTDCSUM ---
It has been my pleasure to treat MARITZA MCMILLAN referred by DIANE Todd, with the diagnosis of DEGENERATION OF LUMBOSACRAL DISC for a total of 32 visit(s). Discharge Date: Please see the following information for a summary of their discharge status. Subjective: PATIENT REPORTS SHE CAN STAND LONGER AND WALK FASTER. STATES SHE HASN'T TRIED WALKING VERY FAR. PATIENT REPORTS SHE DID HER POOL PROGRAM INDEP'LY TUESDAY AND IT WENT WELL. TAKES HER ABOUT AN HOUR. TOLERATED PROGRESSIONS LAST VISIT WELL. NEAR CONSTANT PAIN UNLESS LYING DOWN BUT THE PAIN IS MANAGEABLE. PATIENT REPORTS SHE HAS ONLY NEEDED TO TAKE IBUPROFEN ABOUT TWICE IN THE LAST MONTH. ABLE TO GO OUT TO EAT WITH FRIENDS RECENTLY. Lumbar Spine Pain Intensity (Out of 10): 1 RLE Pain Intensity (Out of 10): Unrated LLE Pain Intensity (Out of 10): Unrated % Improvement: 40 Objective/Function: PATIENT WAS SEEN TODAY FOR RE-ASSESSMENT OF PROGRESS TOWARD THE SET PT GOALS AND THE NEED FOR FURTHER PHYSICAL THERAPY VS READINESS FOR DISCHARGE. ALL PT GOALS HAVE BEEN MET. PATIENT IS TOLERATING AQUATIC THERAPY WELL AND A GOOD CANDIDATE TO CONTINUE INDEP WATER EX AT THIS TIME. PATIENT IS AGREEABLE. UPON EXAM TODAY: THIS PATIENT AMBULATES INDEP'LY INTO PT WITHOUT ANY ASSISTIVE DEVICES, GOOD CADANCE, MILD SLY KNEE FLEXION AND INCREASED TRUNK FLEXION. NO LOB. ROM deficit: TIGHT SLY HIP FLEXORS, HS'S AND GASTROC SOLEUS COMPLEX'S. TIGHT HIP ROTATORS. Motor deficit: RIGHT LE: HIP 4/5, KNEE 4/5, ANKLE 5/5. LEFT HIP 4/5, KNEE 4/5, ANKLE 5/5. Dural Signs: NEG SLY LE'S. Lumbar mvmt loss: flex - MIN - MOD. ext - BELLE. R SG - MOD. L SG - MOD. PATIENT REPORTS MILD INCREASED LBP TODAY WITH LUMBAR ROM TESTING ALL PLANES. Core strength: FAIR Goal 1:: DECREASE C/O LOW BACK PAIN Goal Progress: Goal Met Goal 2:: IMPROVE LIFTING, WALKING, SITTING, STANDING, SOCIAL LIFE, TRAVEL AND HOMEMAKING FUNCTION Goal Progress: Goal Met. Goal 3:: INSTRUCT IN PROPHYLAXIS Goal Progress: Goal Met Plan: D/C TO INDEP POOL AND HOME EX PROGRAMS. PATIENT AGREEABLE. If there are questions or concerns regarding this patient's physical therapy, please feel free to call me at [phone]. Thank you for the referral of this patient. Sincerely, Shannon Coffman, PT, Cert MDT Balance/Gait/Functional tests - Balance/Special Test Scores Oswestry Low Back Score: 20 TUG Test Time Seconds: 9.00 Tug Test: <10 sec.=free mobile 30 Second Chair Rise Test Seconds: 12
== END 2022-02-24 19:00 | disposition home or self-care (01) ==
LOC: PT 11:30
PROVIDERS: PCP Family Medicine; Referring Provider Nurse Practitioner Family; Visit Provider Nurse Practitioner Family
DX: M51.37 Other intervertebral disc degeneration, lumbosacral region (principal); M47.817 Spondylosis without myelopathy or radiculopathy, lumbosacral region; M48.07 Spinal stenosis, lumbosacral region; M54.17 Radiculopathy, lumbosacral region; M46.96 Unspecified inflammatory spondylopathy, lumbar region
CPT/HCPCS: 97113; 97162; 97164

== ENCOUNTER → 2022-03-05 | Outpatient (CLI) | payer MEDICARE, OTHER, SELFPAY ==
--- NOTE | 2022-03-05 13:32 | BI_ITS ---
MAMMOGRAPHY - BILATERAL SCREENING 3-D TOMOSYNTHESIS REASON FOR EXAM: Female, 76 years old. Routine screening PERTINENT HISTORY: No significant family history. TECHNIQUE: 2-D mammograms and 3-D Tomosynthesis of the breast (s) were performed. CAD was performed. COMPARISON: 2014 FINDINGS: The breast composition is almost entirely fat. Scattered benign calcifications are seen. No dense spiculated masses or suspicious microcalcifications are identified. No architectural distortion is identified. There is no skin thickening or retraction. There has been no significant change since the prior study. BI/SCRN MAMM (CAD)W/MEGAN BILAT IMPRESSION: No mammographic signs of malignancy. Routine yearly mammograms recommended. ASSESSMENT CATEGORY: BIRADS Category 1: Negative. A letter regarding these results will be sent to the patient by the facility within 30 days. FOLLOW UP RECOMMENDATION: Yearly follow up mammogram recommended. (A) Approximately 10% of breast cancers are not detected by mammography. A normal mammogram should not delay biopsy of a clinically suspicious abnormality. Electronically Signed: Rajinder Simmons MD at 14:38 EDT ,
== END | disposition home or self-care (01) ==
LOC: OPBI 13:32
PROVIDERS: PCP Family Medicine; Referring Provider Family Medicine; Visit Provider Family Medicine
DX: Z12.31 Encounter for screening mammogram for malignant neoplasm of breast (principal)
CPT/HCPCS: 77063; 77067

== ENCOUNTER 2022-08-09 13:30 | Outpatient (RCR) | payer MEDICARE, OTHER, SELFPAY | END 2022-08-13 23:59 | LOC: DC 13:30 | PROVIDERS: PCP Family Medicine; Visit Provider Family Medicine | DX: E11.9 Type 2 diabetes mellitus without complications (principal) | CPT/HCPCS: 97802; G0108 ==

== ENCOUNTER 2022-08-25 16:42 | Outpatient (RCR) | payer MEDICARE, OTHER, SELFPAY | END 2022-09-12 23:59 | LOC: DC 16:42 | PROVIDERS: PCP Family Medicine; Visit Provider Family Medicine | DX: E11.9 Type 2 diabetes mellitus without complications (principal) | CPT/HCPCS: G0108 ==

== ENCOUNTER 2022-09-29 13:30 | Outpatient (RCR) | payer MEDICARE, OTHER, SELFPAY | END 2022-10-13 23:59 | LOC: DC 13:30 | PROVIDERS: PCP Family Medicine; Referring Provider Family Medicine; Visit Provider Family Medicine | DX: E11.9 Type 2 diabetes mellitus without complications (principal) | CPT/HCPCS: 97803; G0108 ==

== ENCOUNTER → 2023-01-28 | Outpatient (CLI) | payer MEDICARE, OTHER, SELFPAY ==
--- NOTE | 2023-01-28 14:48 | RAD_ITS ---
STUDY: X-RAY - LEFT KNEE REASON FOR EXAM: Female, 77 years old. pain TECHNIQUE: 4 view(s) of the knee. COMPARISON: March 22, 2017 FINDINGS: Normal visualized distal femur. Normal visualized proximal tibia and fibula. Normal proximal tibiofibular articulation. Narrowed medial femorotibial compartment. Narrowed lateral femorotibial compartment. Normal patellofemoral articulation. The soft tissue structures are unremarkable Degenerative changes have progressed since previous exam. RAD/Knee 4 or More Views IMPRESSION: Moderate osteoarthritic changes. No acute fracture or other significant bony pathology Electronically Signed: Shaquille Nicole MD at 17:16 EDT ,
== END | disposition home or self-care (01) ==
LOC: MTRAD 14:43
PROVIDERS: PCP Family Medicine; Referring Provider Family Medicine; Visit Provider Family Medicine
DX: M17.12 Unilateral primary osteoarthritis, left knee (principal)
CPT/HCPCS: 73564

== ENCOUNTER → 2023-03-15 | Outpatient (CLI) | payer MEDICARE, OTHER, SELFPAY ==
--- NOTE | 2023-03-15 14:34 | BI_ITS ---
MAMMOGRAPHY - BILATERAL SCREENING REASON FOR EXAM: Female, 77 years old. Routine annual screening examination. PERTINENT HISTORY: Sister with breast cancer. Aunt with breast cancer. TECHNIQUE: Digital bilateral breast megan (3D mammographic acquisition) in the CC and MLO projections. 2-D mediolateral oblique (MLO) and craniocaudad (CC) views of both breasts were obtained. CAD: Full Field Digital Mammography with Computer Added Detection was performed. COMPARISON: Comparison is made with prior study March 05, 2022 and June 24, 2014. FINDINGS: Breast Composition: The breasts are almost entirely fatty. There are no dominant masses or suspicious calcifications. Stable fat-containing left axillary lymph node. No other significant abnormalities are identified. There has been no significant change since the prior study. BI/SCRN MAMM (CAD)W/MEGAN BILAT IMPRESSION: Stable bilateral screening mammogram. Yearly follow-up mammogram recommended. (A) ASSESSMENT CATEGORY: BIRADS Category 2: Benign. A letter regarding these results will be sent to the patient by the facility within 30 days. Approximately 10% of breast cancers are not detected by mammography. A normal mammogram should not delay biopsy of a clinically suspicious abnormality. [id number] Electronically Signed: Simone Chavarria MD at 15:44 EDT ,
--- NOTE | 2023-03-15 14:38 | BD_ITS ---
STUDY: DUAL ENERGY X-RAY ABSORPTIOMETRY / DXA REASON FOR EXAM: Female, 77 years old. [id number] TECHNIQUE: Bone Mineral Density (BMD) measurements of lumbar spine and bilateral hips were obtained. COMPARISON: None. FINDINGS: Lumbar Spine (L1-L4): g/cm2 (1.280) / T-score (2.1) / Z-score (4.5) Findings are suggestive of normal bone density with a low fracture risk. Left Femur Total: g/cm2 (0.978) / T-score (0.3) / Z-score (2.1) Left Femoral Neck: g/cm2 (0.874) / T-score (0.2) / Z-score (2.3) Right Femur Total: g/cm2 (0.953) / T-score (0.1) / Z-score (1.9) Right Femoral Neck: g/cm2 (0.841) / T-score (-0.1) / Z-score (2.0) BD/Dexa Bone Density Study IMPRESSION: The patient is considered normal as outlined below according to World Fernando Organization (WHO) criteria with a low fracture risk. Reference Information: The T-score is the number of standard deviations above or below the standard which is normal for young adults at their peak bone mineral density. The World Health Organization (WHO) interprets the T-scores as follows: Above -1 Normal bone density Between -1 and -2.5 Osteopenia Equal to / or below -2.5 Osteoporosis As a practical clinical guideline, osteopenia may be graded as follows: Mild -1 through -1.5 Moderate -1.6 through -2.0 Severe -2.1 through -2.4 The Z-score is the number of standard deviations above or below age-matched controls. A Z-score of less than -1.5 would be considered abnormal. References: 1. NIH Osteoporosis and Related Bone Diseases www osteo.org 2. International Society for Clinical Densitometry www iscd.org 3. National Osteoporosis Foundation www nof.org Electronically Signed: Simone Chavarria MD at 9:03 EDT ,
== END | disposition home or self-care (01) ==
LOC: OPBD 14:32
PROVIDERS: PCP Family Medicine; Referring Provider Family Medicine; Visit Provider Family Medicine
DX: Z13.820 Encounter for screening for osteoporosis (principal); Z78.0 Asymptomatic menopausal state; Z12.31 Encounter for screening mammogram for malignant neoplasm of breast; N95.9 Unspecified menopausal and perimenopausal disorder; Z80.3 Family history of malignant neoplasm of breast
CPT/HCPCS: 77063; 77067; 77080

== ENCOUNTER → 2023-04-26 | Outpatient (CLI) | payer MEDICARE, OTHER, SELFPAY ==
[2023-04-26 18:19] LABS: Microalbumin:Creatinine Ratio 7.8 mg/g CRE (<30 mg/g CRE)
[2023-04-26 18:24] LABS: AST(SGOT) 31 U/L (15-37); Alanine Aminotransfer ALT/SGPT 36 U/L (13-56); Albumin, Serum 3.7 g/dL (3.2-5.0); Alkaline Phosphatase 69 U/L (45-117); Anion Gap 6 (5-15); BUN 20 mg/dL (7-18); BUN/Creat Ratio 24.8 RATIO (10-20); Bilirubin, Direct < 0.05 mg/dL (0.00-0.30); Calcium,Total 9.3 mg/dL (8.5-10.1); Chloride 105 mmol/L (98-107); Cholesterol 157 mg/dL (200); Creatinine, Serum 0.81 mg/dL (0.55-1.02); EST Glomerular Filtration Rate 74 mL/min (>60); Est Glom Filt Rate - Afr Amer 89 mL/min (>60); Globulin 4.3 g/dL (2.2-4.2); Glucose 165 mg/dL (74-106); High Density Lipoprotein 57 mg/dL; Potassium 4.2 mmol/L (3.5-5.1); Sodium Level 138 mmol/L (136-145); Triglycerides 149 mg/dL; Very Low Density Lipoprotein 30 mg/dL (5-40)
== END | disposition home or self-care (01) ==
LOC: MFPLAB 14:15
PROVIDERS: PCP Family Medicine; Visit Provider Family Medicine
DX: E11.9 Type 2 diabetes mellitus without complications (principal); E78.5 Hyperlipidemia, unspecified
CPT/HCPCS: 36415; 80048; 80061; 80076; 82043; 82570

== ENCOUNTER → 2024-03-19 | Outpatient (CLI) | payer MEDICARE, OTHER, SELFPAY ==
--- NOTE | 2024-03-19 10:45 | BI_ITS ---
MAMMOGRAPHY - BILATERAL SCREENING REASON FOR EXAM: Female, 78 years old. Routine annual screening examination. PERTINENT HISTORY: Sister with breast cancer. Aunt with breast cancer. TECHNIQUE: Digital bilateral breast megan (3D mammographic acquisition) in the CC and MLO projections. 2-D mediolateral oblique (MLO) and craniocaudad (CC) views of both breasts were obtained. CAD: Full Field Digital Mammography with Computer Added Detection was performed. COMPARISON: Comparison is made with prior study March 15, 2023 and March 05, 2022. FINDINGS: Breast Composition: The breasts are almost entirely fatty. There are no dominant masses or suspicious calcifications. Stable fat-containing left axillary lymph nodes. No other significant abnormalities are identified. There has been no significant change since the prior study. BI/SCRN MAMM (CAD)W/MEGAN BILAT IMPRESSION: Stable bilateral screening mammogram. Yearly follow-up mammogram recommended. (A) ASSESSMENT CATEGORY: BIRADS Category 2: Benign. A letter regarding these results will be sent to the patient by the facility within 30 days. Approximately 10% of breast cancers are not detected by mammography. A normal mammogram should not delay biopsy of a clinically suspicious abnormality. [id number] Electronically Signed: Simone Chavarria MD at 11:51 EST ,
== END | disposition home or self-care (01) ==
LOC: OPBI 10:45
PROVIDERS: PCP Family Medicine; Referring Provider Family Medicine; Visit Provider Family Medicine
DX: Z12.31 Encounter for screening mammogram for malignant neoplasm of breast (principal)
CPT/HCPCS: 77063; 77067

== ENCOUNTER → 2024-04-10 | Outpatient (CLI) | payer MEDICARE, OTHER, SELFPAY ==
[2024-04-10 13:54] LABS: Mucous, Urine 0 SEEN /hpf (<or=2+)
[2024-04-10 15:23] LABS: Color, Urine Amber (Yellow); Glucose, Dipstick Normal (Normal); Ketone-Dipstick Negative (Negative); Leukocyte Esterase-Dipstick 500 /ul (Negative); Nitrite-Dipstick Positive (Negative); Occult Blood-Urine 250 /ul (Negative); Protein-Dipstick 30 mg/dl (Negative); Specific Gravity, Urine 1.015 (1.002-1.030); Urine Clarity Cloudy (Clear); Urine Urobilinogen 8 mg/dl (Normal)
[2024-04-10 15:28] LABS: Urine Bilirubin Dipstick 3 mg/dL (Negative)
[2024-04-10 15:31] LABS: Bacteria 3+ /hpf (None Seen); Red Blood Cells-Urine 25-50 SEEN /hpf (0-5); Squamous Epithelial Cells - UA 0-5 SEEN /hpf (5-10); White Blood Cells >100 SEEN /hpf (0-5)
[2024-04-10 15:32] LABS: Amorphous Sediment 2+ URATE
== END | disposition home or self-care (01) ==
LOC: LABSPEC 13:52
PROVIDERS: PCP Family Medicine; Visit Provider Family Medicine
DX: R39.9 Unspecified symptoms and signs involving the genitourinary system (principal)
CPT/HCPCS: 81001; 87086; 87088

== ENCOUNTER → 2024-07-05 | Outpatient (CLI) | payer MEDICARE, OTHER, SELFPAY ==
--- NOTE | 2024-07-05 15:13 | RAD_ITS ---
PROCEDURE: Lumbar spine radiographs, five views REASON FOR EXAM: Degenerative disc disease TECHNIQUE: 5 view(s) of the lumbar spine. COMPARISON: None. FINDINGS: Five views of the lumbar spine were obtained. Bones are osteopenic. Included portions of the pelvis and SI joints are intact. There is moderate rightward curvature of the mid lumbar spine on the AP view. 15 mm of right lateral subluxation of L3 relative to L4 on the AP view. Mild chronic appearing height loss of the right side of T12. There is straightening of the normal lumbar lordosis. There is age-indeterminate mild height loss of L2. Moderately extensive multilevel degenerative disc and facet disease in the lumbar spine. What is described as the T12 vertebral body demonstrates no significant ribs. RAD/L/S Spine Min 4 Views IMPRESSION: Osteopenia. Moderate rightward convex curvature of the lumbar spine on the AP view. Mild chronic appearing height loss of the right side of T12 of the AP view. Th ere is mild age-indeterminate height loss of L2. Moderately extensive multilevel degenerative disc and facet disease in the lumb ar spine. If there is persistent pain or clinical concern, short-term follow-up MRI evalu ation may be considered. Reading Location: [facility]
== END | disposition home or self-care (01) ==
LOC: MTRAD 15:12
PROVIDERS: PCP Family Medicine; Referring Provider Clinical Nurse Specialist Adult Health; Visit Provider Clinical Nurse Specialist Adult Health
DX: M51.369 Other intervertebral disc degeneration, lumbar region without mention of lumbar back pain or lower extremity pain (principal)
CPT/HCPCS: 72110

== ENCOUNTER → 2024-12-20 | Outpatient (CLI) | payer MEDICARE, OTHER, SELFPAY ==
[2024-12-20 18:37] LABS: CRP < 3.00 mg/L (0.0-3.0); Pro- Brain NATRIURETIC PEPTIDE < 36 pg/mL (<=1800)
[2024-12-24 13:08] LABS: ANTINUCLEAR ANTIBODIES DIRECT Negative (Negative)
== END | disposition home or self-care (01) ==
LOC: MTLAB 16:39
PROVIDERS: PCP Family Medicine; Referring Provider Internal Medicine Pulmonary Disease; Visit Provider Internal Medicine Pulmonary Disease
DX: R06.00 Dyspnea, unspecified (principal)
CPT/HCPCS: 36415; 83880; 85652; 86038; 86140; 86431

== ENCOUNTER → 2025-01-28 | Outpatient (CLI) | payer MEDICARE, OTHER, SELFPAY ==
--- NOTE | 2025-01-28 14:06 | ECHOD_ITS ---
Reason For Study Reason For Study: PHTN Procedure This was a 2D Doppler, Color Flow transthoracic echocardiogram. Exam performed in department. Left Ventricle Normal LV size. Mild concentric left ventricular hypertrophy. Left ventricular systolic function is normal. The left ventricular ejection fraction is 60 %. Stage 1 diastolic dysfunction. No regional wall motion abnormalities noted. Right Ventricle Normal RV size. Normal systolic function. The RV free wall longitudinal strain was -25.8 % . Atria The left atrium is mildly enlarged. Normal right atrium. Mitral Valve The mitral valve is structurally normal. No prolapse or stenosis seen. Mild (1+) mitral valve insufficiency. Tricuspid Valve Normal tricuspid valve. Trivial tricuspid valve insufficiency. Pulmonary artery systolic pressure is 19 mmHg. Aortic Valve Trisinus/trileaflet aortic valve. Mild focal aortic valve thickening. Aortic sclerosis, no stenosis. Mild (1+) aortic valve insufficiency. Pulmonic Valve Normal pulmonic valve. Trivial pulmonic valve insufficiency. Great Vessels Normal sized aortic root. Pericardium/Pleural No pericardial effusion. MMode/2D Measurements & Calculations LVIDd: 4.6 cm IVSd: 1.1 cm LVOT diam: 2.1 cm LVIDs: 2.6 cm LVPWd: 1.1 cm LVOT area: 3.4 cm2 RVDd: 3.8 cm FS: 43.0 % Ao root diam: 3.0 cm LAV(MOD-bp): 35.1 ml LVAd ap4: 22.1 cm2 LAV(MOD-bp) Indexed: 17.0 ml/m2 LVLd ap4: 7.1 cm LAV(MOD-sp2): 30.8 ml EDV(MOD-sp4): 55.4 ml LAV(MOD-sp4): 40.8 ml EDV(sp4-el): 58.2 ml LVAs ap4: 11.7 cm2 LVLs ap4: 5.8 cm ESV(MOD-sp4): 20.4 ml ESV(sp4-el): 19.9 ml EF(MOD-sp4): 63.3 % EF(sp4-el): 65.9 % LVAd ap2: 19.2 cm2 SV(MOD-sp4): 35.1 ml SV(MOD-sp2): 26.1 ml LVLd ap2: 6.8 cm SI(MOD-sp4): 17.0 ml/m2 SI(MOD-sp2): 12.6 ml/m2 EDV(MOD-sp2): 43.4 ml EDV(sp2-el): 46.0 ml LVAs ap2: 11.1 cm2 LVLs ap2: 5.8 cm ESV(MOD-sp2): 17.2 ml ESV(sp2-el): 17.9 ml EF(MOD-sp2): 60.2 % SV(sp4-el): 38.3 ml Ao sinus diam: 3.[address] Junction: 2.6 cm LA dimension(2D): 3.6 cm LA A4 area: 15.4 cm2 RA A4 area: 10.9 cm2 TAPSE: 1.8 cm Time Measurements MV dec time: 0.18 sec Doppler Measurements & Calculations MV E max daniel: 53.8 cm/sec Lat Peak E' Daniel: 7.7 cm/sec Med Peak E' Daniel: 7.5 cm/sec MV A max daniel: 80.0 cm/sec E/E' lat: 7.0 E/E' med: 7.2 MV E/A: 0.67 MV dec slope: 291.0 cm/sec2 Ao V2 max: 137.4 cm/sec LV V1 max: 97.4 cm/sec Ao max P.5 mmHg LV V1 max P.8 mmHg Ao V2 mean: 108.3 cm/sec LV V1 mean P.6 mmHg Ao mean P.9 mmHg LV V1 mean: 78.6 cm/sec Ao V2 VTI: 26.0 cm LV V1 VTI: 19.5 cm AV (velocity ratio): 0.75 SIERRA(I,D): 2.5 cm2 SIERRA(V,D): 2.4 cm2 SV(LVOT): 65.5 ml PA V2 max: 95.4 cm/sec TR max daniel: 199.6 cm/sec TR max P.9 mmHg ECHO/Echo Complete Interpretation Summary The left ventricular ejection fraction is 60 %. Stage 1 diastolic dysfunction. Mild concentric left ventricular hypertrophy. Mild (1+) mitral valve insufficiency. Aortic sclerosis, no stenosis. Mild (1+) aortic valve insufficiency. The left atrium is mildly enlarged. Ordering Physician: Demar Dobbins V Referring Physician: Harshil Kim MD Performed By: April James RDCS
== END | disposition home or self-care (01) ==
LOC: CVS 14:04
PROVIDERS: PCP Family Medicine; Referring Provider Internal Medicine Pulmonary Disease; Visit Provider Internal Medicine Pulmonary Disease
DX: I27.20 Pulmonary hypertension, unspecified (principal)
CPT/HCPCS: 93306

== ENCOUNTER → 2025-03-18 | Outpatient (CLI) | payer MEDICARE, OTHER, SELFPAY ==
[2025-03-18 16:20] LABS: AST(SGOT) 24 U/L (<=31); Alanine Aminotransfer ALT/SGPT 23 U/L (<=34); Albumin, Serum 4.3 g/dL (3.4-4.8); Alkaline Phosphatase 66 U/L (35-104); Anion Gap 12 (5-15); BUN 19 mg/dL (4-19); BUN/Creat Ratio 20.4 RATIO (10-20); Calcium,Total 10.0 mg/dL (7.6-11.0); Carbon Dioxide 26.4 mmol/L (21.0-32.0); Chloride 100 mmol/L (98-108); Cholesterol 163 mg/dL (<=200); Globulin 3.2 g/dL (2.2-4.2); Glucose 194 mg/dL (70-99); Low Density Lipoprotein Calc. 82 mg/dL; Potassium 4.4 mmol/L (3.3-5.1); Triglycerides 146 mg/dL; Very Low Density Lipoprotein 29 mg/dL (5-40); cholesterol:hdl ratio screen 2.91
[2025-03-18 18:16] LABS: Creatinine, Urine (random) 108.00 mg/dL (28.00-217.00); Microalbumin,Random Urine 12.6 mg/L (<20 mg/L)
== END | disposition home or self-care (01) ==
LOC: MTLAB 10:45
PROVIDERS: PCP Family Medicine; Referring Provider Family Medicine; Visit Provider Family Medicine
DX: E11.9 Type 2 diabetes mellitus without complications (principal)
CPT/HCPCS: 36415; 80053; 80061; 82043; 82570; 83036

== ENCOUNTER → 2025-04-26 | Outpatient (CLI) | payer MEDICARE, OTHER, SELFPAY ==
--- NOTE | 2025-04-26 08:15 | BI_ITS ---
EXAM: SCRN MAMM (CAD)W/MEGAN BILAT DATE: 04/26/2025 CLINICAL HISTORY: F, Age 79 y/o , ANNUAL TECHNIQUE: Procedure Code: [id number] Modality: MG Procedure: SCRN MAMM (CAD)W/MEGAN BILAT COMPARISON: Prior exam(s) dated 03/19/2024, 03/15/2023, 03/05/2022. FINDINGS: TISSUE DENSITY: The breasts are almost entirely fatty. Bilateral Breast Mammographic Findings: No significant masses, calcifications or other abnormalities are identified. BI/SCRN MAMM (CAD)W/MEGAN BILAT IMPRESSION: There is no mammographic evidence of malignancy. OVERALL FINAL ASSESSMENT BI-RADS 1: NEGATIVE. RECOMMENDATION: Routine annual follow-up in 1 Year Additional Recommendation none A letter with findings and recommendations will be mailed to the patient. Reading Location: [id number]
== END | disposition home or self-care (01) ==
LOC: OPBI 08:35
PROVIDERS: PCP Family Medicine; Referring Provider Family Medicine; Visit Provider Family Medicine
DX: Z12.31 Encounter for screening mammogram for malignant neoplasm of breast (principal)
CPT/HCPCS: 77063; 77067